=== PATIENT | female | born 1935 | race Caucasian/White ===

== ENCOUNTER → 2016-11-11 | Outpatient (REF) | payer MEDICARE, OTHER ==
[~2016-11-11] MED LIST: ATOR1TAB19 PO; BISO5TAB5 PO; CHLO25TA PO; ELIQ5TAB PO; FISH5CAP PO; FLEC150T PO; FLON1SPR; LEVO125T3 PO; LOSA25TA8 PO; MAGN500T6 PO; METF1000 PO; TIMO5OPD OU; TYLE325T5 PO; VITMTA PO
== END ==
LOC: M LAB REF 16:26
PROVIDERS: ATTEND Family Medicine
DX: I48.91 Unspecified atrial fibrillation (principal); E11.9 Type 2 diabetes mellitus without complications; R63.4 Abnormal weight loss; E03.9 Hypothyroidism, unspecified; I10 Essential (primary) hypertension; Z86.79 Personal history of other diseases of the circulatory system

== ENCOUNTER → 2016-11-22 | Outpatient (CLI) | payer MEDICARE, OTHER ==
[~2016-11-22] MED LIST changes: +GASTROGRAFIN SOLUTION 30ML (Q9963) As Ordered ONE; +ISOVUE-370 76% 100ML VIAL (Q9967) As Ordered ONE
--- NOTE | 2016-11-22 16:28 | REP ---
CT study abdomen and pelvis without and with IV contrast: With oral contrast. History: Loss of appetite, unexplained weight loss, extreme exhaustion. CT contrast dose: 100 ml of Isovue [address] findings: Preliminary digital career development director radiograph demonstrates unremarkable bowel gas pattern. A bipolar pacemaker is seen in the right heart. The lung bases are clear on axial CT images. The liver and the spleen are normal in size and homogeneous in texture. There is mild diffuse fatty infiltration of the liver. There are opaque small gallstones layering in the dependent portion of the gallbladder. Pancreas is unremarkable. There are two accessory splenules. The kidneys enhance symmetrically. There is a cyst in the upper pole of the left kidney, which measures 2.5 cm in diameter. No renal calculus is seen. No mass lesion is observed. There is a fat-containing small nodule in the medial and superior aspect of the left adrenal gland consistent with a benign myelolipoma. This measures 2.7 cm x 2.2 cm x 2.6 cm. It is unchanged from the prior study of January 13, 2007. The right adrenal gland is unremarkable. There are a few normal-appearing celiac axis lymph nodes. No evidence of adenopathy seen. Small and large intestinal bowel loops are normal in the upper abdomen. Pelvic findings: There is mild left colonic diverticulosis without CT evidence of diverticulitis. No obstructive lesion or mass is seen. Uterus is surgically absent. Urinary bladder is unremarkable. No abdominal wall defect is seen. Bone window settings show no bony destructive lesion. There are degenerative changes in the lumbar spine. Impression: 1. Mild diffuse fatty infiltration of the liver. 2. Cholelithiasis. 3. Stable benign left adrenal gland myelolipoma. 4. Benign left renal cysts. 5. Mild left colonic diverticulosis. No acute abdominal or pelvic abnormality. Signed by Khoa Rojas MD 11/22/2016 05:02 P
== END ==
LOC: M RAD 13:51
PROVIDERS: ATTEND Family Medicine
DX: K76.0 Fatty (change of) liver, not elsewhere classified (principal); K80.20 Calculus of gallbladder without cholecystitis without obstruction; N28.1 Cyst of kidney, acquired; K57.90 Diverticulosis of intestine, part unspecified, without perforation or abscess without bleeding; R63.4 Abnormal weight loss; R63.0 Anorexia; R53.83 Other fatigue
CPT/HCPCS: 74178; Q9963; Q9967

== ENCOUNTER → 2017-01-31 | Outpatient (CLI) | payer MEDICARE, OTHER ==
[~2017-01-31] MED LIST changes: -GASTROGRAFIN SOLUTION 30ML (Q9963) As Ordered ONE; -ISOVUE-370 76% 100ML VIAL (Q9967) As Ordered ONE; -LEVO125T3 PO; +LEVO125T4 PO; -METF1000 PO; +METF10004 PO
--- NOTE | 2017-01-31 09:23 | REP ---
Abdominal right upper quadrant ultrasound: Study is correlated with the CT abdomen pelvis dated 11/22/2016. There is no Sutherland's sign to transducer pressure. There are multiple small mobile gallbladder calculi. These were also identified on the comparison CT. There is no gallbladder wall thickening or pericholecystic fluid. There is no intrahepatic or extrahepatic biliary duct dilatation, the common duct measures 4.7 mm in diameter. The hepatic parenchyma is a hyperechoic compatible with hepato steatosis. This is was also identified on the comparison CT. There are no hepatic masses. The visualized portion of the pancreatic head is unremarkable. The body and tail are obscured by bowel. There is no right renal calculus, mass, cyst or hydronephrosis. The right kidney is normal size measuring 11.7 cm craniocaudad length. There is a column of Clint as an anatomic variant. Impression: Cholelithiasis. There is no ultrasound evidence of acute cholecystitis. Hepato steatosis. No biliary duct dilatation. Signed by Wei Allan MD 01/31/2017 09:13 A
--- NOTE | 2017-01-31 13:37 | REP ---
Hepatobiliary scan and gallbladder ejection fraction: History: Cholelithiasis. Unexplained weight loss. Technique: 6.3 mCi of technetium-99m mebrofenin was injected and sequential anterior images are acquired. 65 minutes after the mebrofenin injection, the patient consumed 8 ounces Ensure and an additional 60 minutes of imaging was acquired. Regions of interest are plotted around the gallbladder. Findings: The initial hepatocellular parenchymal uptake phase is normal and homogeneous. Intra- and extra-hepatic bile ducts and duodenum are labeled by the 10 -minute image. The gallbladder is first labeled on the 20 -minute image. There is normal washout from the liver parenchyma into the gallbladder and small intestine on subsequent images. The gallbladder ejection fraction is 32 %. Values greater than 35 % are considered normal with this technique. Impression: Normal hepatobiliary scan and slightly decreased gallbladder ejection fraction. Signed by Khoa Rojas MD 01/31/2017 01:29 P
== END ==
LOC: M RAD 08:17
PROVIDERS: ATTEND Family Medicine
DX: R10.9 Unspecified abdominal pain (principal)
CPT/HCPCS: 76705; 78227; A9537; J2805

== ENCOUNTER → 2017-04-14 | Outpatient (REF) | payer MEDICARE, OTHER ==
[2017-04-14 19:11] LABS: ANION GAP 8 MEQ/L (8-16); BLOOD UREA NITROGEN 24 MG/DL (7-18); CARBON DIOXIDE LEVEL 31 MEQ/L (21-32); CHLORIDE LEVEL 102 MEQ/L (98-107); CREATININE FOR GFR 0.77 MG/DL (0.55-1.02); GLOMERULAR FILTRATION RATE > 60.0 (>32); GLUCOSE, FASTING 172 MG/DL (83-110); MAGNESIUM LEVEL 1.8 MG/DL (1.8-2.4); POTASSIUM SERUM 3.9 MEQ/L (3.5-5.1); SODIUM LEVEL 141 MEQ/L (136-145)
== END ==
LOC: M LAB REF 18:20
PROVIDERS: ATTEND Family Medicine
DX: I49.1 Atrial premature depolarization (principal); E11.9 Type 2 diabetes mellitus without complications; Z86.79 Personal history of other diseases of the circulatory system; I45.89 Other specified conduction disorders

== ENCOUNTER 2021-05-15 14:03 | Inpatient (IN) | payer MEDICARE, OTHER ==
[~2021-05-15] VITALS: Ht 165.1 cm; Wt 58.4 kg
[~2021-05-15 14:03] MED LIST changes: +BISO5TAB14 PO; -BISO5TAB5 PO; +LOSA25TA14 PO; -LOSA25TA8 PO
[2021-05-15] MEDS ORDERED: PANTOPRAZOLE 40MG VIAL (C9113 PER 1) IV ONE (15:20)
--- NOTE | 2021-05-15 15:47 | REP ---
INDICATION: syncope COMPARISON: 01/31/2016 TECHNIQUE: Portable AP view of the chest FINDINGS: The mediastinum and cardiac silhouette are stable and within normal limits for portable technique. Pacemaker in stable position. The lung weathers demonstrate chronic changes without consolidation, effusion, or pneumothorax. Skeletal structures are intact. IMPRESSION: No acute cardiopulmonary process appreciated. <Electronically signed by Kg Pastrana > 05/15/21 [id number]
[2021-05-15 16:23] LABS: BASO # 0.1 10^3/uL (0.0-0.2); BASO % 0.6 % (0.0-1.0); EOS # 0.1 10^3/uL (0.0-0.5); EOS % 0.6 % (0.0-3.0); HEMATOCRIT 35.4 % (36.0-47.0); HEMOGLOBIN 11.9 g/dl (12.0-15.5); LYMPH # 2.6 10^3/uL (1.5-5.0); LYMPH % 20.8 % (24.0-44.0); MEAN CORPUSCULAR HEMOGLOBIN 30.1 pg (27.0-33.0); MEAN CORPUSCULAR HGB CONC 33.6 g/dl (32.0-36.5); MEAN CORPUSCULAR VOLUME 89.4 fl (80.0-96.0); MONO # 0.7 10^3/uL (0.0-0.8); MONO % 5.4 % (2.0-8.0); NEUTROPHILS # 8.8 10^3/uL (1.5-8.5); PLATELET COUNT, AUTOMATED 188 10^3/uL (150-450); RED BLOOD COUNT 3.96 10^6/uL (4.00-5.40); WHITE BLOOD COUNT 12.3 10^3/uL (4.0-10.0)
[2021-05-15 16:34] LABS: INR 1.04
[2021-05-15] MEDS ORDERED: ASPI81CH33 PO (16:56)
[2021-05-15 17:21] LABS: ALBUMIN 3.3 GM/DL (3.2-5.2); ALT/SGPT 29 U/L (12-78); BILIRUBIN,DIRECT 0.1 MG/DL (0.0-0.2); BILIRUBIN,TOTAL 0.4 MG/DL (0.2-1.0); BLOOD UREA NITROGEN 41 MG/DL (7-18); CALCIUM LEVEL 9.6 MG/DL (8.8-10.2); CARBON DIOXIDE LEVEL 26 MEQ/L (21-32); CHLORIDE LEVEL 102 MEQ/L (98-107); CK-MB VALUE MASS < 1.0 NG/ML (<3.6); CPK CREATINE PHOSPHOKINASE 25 U/L (26-192); FREE T4 1.12 NG/DL (0.76-1.46); GLOMERULAR FILTRATION RATE > 60.0 (>32); GLUCOSE, FASTING 112 MG/DL (70-100); LIPASE 77 U/L (73-393); MAGNESIUM LEVEL 1.6 MG/DL (1.8-2.4); POTASSIUM SERUM 3.7 MEQ/L (3.5-5.1); SODIUM LEVEL 139 MEQ/L (136-145); THYROID STIMULATING HORMONE 0.894 uIU/ML (0.358-3.740); TOTAL PROTEIN 6.3 GM/DL (6.4-8.2); TROPONIN I < 0.02 NG/ML (< 0.10)
[2021-05-15] MEDS ORDERED: ISOVUE-370 76% 100ML VIAL As Ordered ONE (17:46)
[2021-05-15] MEDS ORDERED: NS 500 ML IV ONE (18:45)
--- NOTE | 2021-05-15 19:14 | REPVR ---
PROCEDURE INFORMATION: Exam: CT Abdomen And Pelvis With Contrast Exam date and time: 05/15/2021 5:57 PM Age: 86 years old Clinical indication: Abdominal pain; Localized; Lower; Additional info: Low abd pain syncope TECHNIQUE: Imaging protocol: Computed tomography of the abdomen and pelvis with contrast. Radiation optimization: All CT scans at this facility use at least one of these dose optimization techniques: automated exposure control; mA and/or kV adjustment per patient size (includes targeted exams where dose is matched to clinical indication); or iterative reconstruction. Contrast material: ISOVUE 370; Contrast volume: 100 ml; Contrast route: INTRAVENOUS (IV); COMPARISON: CT ABD PELVIS W/O FOL BY WIT 11/22/2016 3:16 PM FINDINGS: Lungs: No suspicious mass or airspace process in the visualized lung bases. Liver: Heterogeneous patchy enhancement of the liver with appearance suggesting hepatic steatosis and areas of geographic sparing. Relatively similar appearance compared to the prior CT from November 2016. Gallbladder and bile ducts: Gallstones are present in the gallbladder lumen. No adjacent fluid or duct dilatation. Pancreas: Pancreas appears normal. No focal mass or peripancreatic inflammation. Spleen: Spleen appears homogeneous without focal mass. Adrenal glands: Right adrenal gland is normal. Left adrenal demonstrates a 2.8 x 1.9 cm mass that is unchanged since 2017. Kidneys and ureters: Kidneys are normal except for benign simple fluid density cysts which require no follow-up. Stomach and bowel: No evidence of small bowel obstruction. Multiple fluid-filled loops of nondilated bowel with enhancing mucosa are present. Diverticular changes are present within the colon without inflammation. Appendix: Appendix is not seen. No RLQ inflammation to suggest appendicitis. Intraperitoneal space: No pneumoperitoneum. Vasculature: No aortic aneurysm. Main portal and splenic veins enhance normally. Lymph nodes: No enlarged lymph nodes. Urinary bladder: Urinary bladder appears normal. Reproductive: Uterus is surgically absent. Bones/joints: Bony structures are normal except for lumbar spine degenerative disc changes. Soft tissues: Unremarkable. IMPRESSION: 1. Pattern of small bowel and colon suggests the possibility of mild inflammatory or infectious enteritis without obstruction. 2. Colonic diverticulosis without active inflammation 3. Prominent rectosigmoid colonic stool without evidence of an obstructive lesion. Correlation with rectal exam is recommended if clinically warranted Electronically signed by: Oleksandr Guo On 05/15/2021 19:14:04 PM
[2021-05-15] MEDS ORDERED: SODIUM CHLORIDE 0.9% 1000ML IV STA (20:03)
--- NOTE | 2021-05-15 20:27 | HPEPDOC ---
[facility] Medical History & Physical Date of Admission May 15, 2021 Date of Service: May 15, 2021 Primary Care Physician: Susie Blackwell Attending Physician: KERRI JEROME MD History and Physical TIME OF SERVICE: 950pm CHIEF COMPLAINT: loss of consciousness HISTORY OF PRESENT ILLNESS: For the last 6 months has been feeling more tired than usual and sleeping a lot. For several weeks she has had intermittent right sided 6/10 in severity abdominal pain that improves after she has a BM. This afternoon, while walking felt lightheaded and passed out. Because her caught her she didnt hurt herself. Of note she had two black BMs today and has been taking Ibuprofen daily for joint pain. REVIEW OF SYSTEMS: 10-point review of systems negative except as listed in HPI PAST MEDICAL/ SURGICAL HISTORY: IDDM, Paroxysmal A Fib, Sick sinus syndrome w pacemaker placement, DLP, Hepatic steatosis, diverticulosis, hypothyroidism, OA of the knees, Bilateral cataract surgery, Tonsillectomy, Appendectomy, Hysterectomy, Resection of facial skin cancer, Lysis of adhesions FAMILY HISTORY: Her father had CAD SOCIAL HISTORY: She is a former smoker, drinks alcohol occasionally and lives with her ; she is a retired commercial real estate sales manager ALLERGIES: Please see below. HOME MEDICATIONS: Please see below. PHYSICAL EXAMINATION: Vital Signs Date Time Temp Pulse Resp B/P (MAP) Pulse Ox O2 Delivery O2 Flow Rate FiO2 05/15/21 14:50 117/66 (83) 05/15/21 14:50 98.7 71 18 95 Room Air GENERAL APPEARANCE: slim build / well developed/ NAD HEENT: EOMI / MM pink but dry CARDIOVASCULAR: RRR/NMRG LUNGS: CTAB on RA ABDOMEN: contour flat / soft & she feels more pressure with palpation of the right lower quadrant MUSCULOSKELETAL: NCAT / ROWENA x 4 extremities INTEGUMENT: she is not flushed, pale or diaphoretic NEUROLOGICAL: CN 2-12 grossly intact / speech not dysarthric PSYCHIATRIC: A&O x 3 / able to understand and follow all commands LABORATORY DATA: IMAGING: CT abd/pelvis IMPRESSION: 1. Pattern of small bowel and colon suggests the possibility of mild inflammatory or infectious enteritis without obstruction. 2. Colonic diverticulosis without active inflammation 3. Prominent rectosigmoid colonic stool without evidence of an obstructive lesion. Correlation with rectal exam is recommended if clinically warranted. Chest xray IMPRESSION: No acute cardiopulmonary process appreciated. MICROBIOLOGY: Respiratory panel negative ASSESSMENT: is an 86 yr old w a hx of IDDM, Paroxysmal A Fib, Sick sinus syndrome w pacemaker placement, DLP, Hepatic steatosis, hypothyroidism, diverticulosis & OA of the knees admitted for syncope, melena, and SIRS. PLAN: 1 Syncope -Cause may be vasovagal or orthostatic or cardiogenic in nature, -I am not convinced that this is due to symptomatic anemia alone bc her Hg is 11. -She also has a pacemaker. Per JAMAs article Did this patient have cardiac syn cope? she has a hx of atrial fibrillation which is associated with a positive likelihood of cardiac syncope -Her EGSYS Score to identify cardiac syncope is 3 which indicates that this is likely cardiac syncope. Plan: admit to PCU / Telemetry / f/u orthostats / the day time team may consider reaching out to to determine if her pacer needs to be interrogated in the morning / check dig levels (med can cause dizziness) 2 Melena / UGIB -Suspect this is due to Ibuprofen use (erosive gastritis) -Per JAMAs article Does this patient have a severe UGIB? the presence of a BUN:Cr ratio > 30 and her reports of melena increases the likelihood that she has a severe UGIB -Her Keesha-Blatchford Score to identify low risk UGIB is 8 points which puts her in the category of high risk for GI bleed Plan: because her Keesha-Blachford score is high we will admit her to PCU/ ask RNs to place 2 large bore IVs & check orthostats / start PPI 40mg IV BID for 72 H, then switch to PO after 72 H (to decrease rate of re-bleeding) / f/u type & screen & iron studies / f/u Hg Q6H and keep Hg >7 / hold Ibuprofen & ASA / avoid PRN NSAIDs / CLD for now / GI consult for EGD +/-c-scope in the morning 3 SIRS vs Sepsis -possibly 2/2 Enteritis, but we need to also r/o other sources of infection -She has the following SIRS criteria: HR >90 / WBC >12 Plan: admit to ICU / telemetry / f/u lactic acid / Zosyn and vancomycin pending MRSA / LR /f/u blood cx, UA w culture and GI panel / Acetaminophen PRN for fever / target MAP at of least 65 to 70 / f/u Is and Os with target UOP of at least 0.5 ml/kg/H / f/u FSBS w target serum glucose 140-180 while acutely ill / hold chlorthalidone 4 Fatigue Plan: f/u B12 and B1 5 Hypomagnesemia Plan: replete Mg 6 IDDM Plan: f/u accuchecks Q6H / hypoglycemia protocol / sliding scale insulin / hold oral anti-glycemics / f/u A1C / decrease her long acting insulin from 14 units QHS to 5 units QHS / PCP may consider out pt Endo referral to switch the patient from basal bolus injection to continuous subcutaneous insulin infusion which has been shown to produced small improvements in A1C, improve QOL and reduce episodes of severe hypoglycemia 7 Paroxysmal A Fib / Sick sinus syndrome w pacemaker placement -Her CHADSVASC Score is 4, but for unclear reasons she is not on [facility] AC Plan: telemetry / digoxin & sotalol / check dig levels / once the cause of her GI bleed has been determined the day time team may consider, obtaining a copy of her Echo to confirm that she doesn't have valvular Afib, calculating her her HASBLED score, and discussing the risks and benefits of AC with the patient prior to starting a DOAC 8 Hypothyroidism Plan: levothyroxine DVT px w TEDS/SCDs bc of GIB Disposition: home after more than 2 midnights stay Home Medications Scheduled Aspirin (Aspirin EC) 81 Mg Tablet., 81 MG PO DAILY Atorvastatin Calcium (Atorvastatin Calcium) 10 Mg Tab, 10 MG PO Q2D EVERY OTHER NIGHT Digoxin (Digoxin) 125 Mcg Tablet, 125 MCG PO DAILY Docusate Sodium (Colace) 100 Mg Capsule, 1 CAP PO BID Ferrous Sulfate (Ferrous Sulfate) 325 Mg Tablet., 1 TAB PO DAILY Insulin Glargine,Hum.rec.anlog (Chitra Grover) 300 Unit/1 Ml Insuln.pen, 14 UNIT SC QHS Levothyroxine Sodium (Levothyroxine Sodium) 125 Mcg Tab, 125 MCG PO DAILY Magnesium Gluconate (Magnesium Gluconate) 500 Mg Tab, 500 MG PO DAILY Metformin HCl (Metformin HCl) 1,000 Mg Tab, 1,000 MG PO BIDWM Multivitamins (Thera M Plus Tablet) 1 Tab Tab, 1 TAB PO DAILY Pantoprazole Sodium (Pantoprazole Sodium) 40 Mg Tablet.dr, 40 MG PO BID Sotalol HCl (Sotalol) 80 Mg Tablet, 80 MG PO BID Scheduled PRN Fluticasone Propionate (Flonase Allergy Relief) 50 Mcg/Act Spr, 1 SPRAY NA BID PRN for NASAL CONGESTION Allergies Coded Allergies: amiodarone (Unverified Allergy, Unknown, BLISTERS, 05/15/21) A-FIB/CHADSVASC A-FIB History Current/History of A-Fib/PAF?: Yes Current PO Anticoag Therapy: No Treatment Treatment ordered: NONE (gi bleed) Other anticoagulant ordered: GI bleed w anemia Reason Anticoagulant not given: Current bleeding Other reason anticoagulant not: anemia KERRI JEROME MD May 15, 2021 20:27
[2021-05-15] MEDS ORDERED: VANCOMYCIN HCL 1,000 MG, VIAL MATE ADAPTER 1 EACH in NS 250 ML IV SCH (20:35)
[2021-05-15] MEDS ORDERED: MAG SULF 1GM/100ML (MAG RUN) 1 GM in IV 1 EA IV ONE (21:00)
[2021-05-15 21:04] LABS: RSV AMPLIFICATION NEGATIVE (NEGATIVE)
--- NOTE | 2021-05-15 21:59 | ECGEPIP ---
[facility] - ED Test Date: 2021-05-15 Pat Name: APOLINAR MENDEZ Department: Room: - Gender: Female Circulation Tender: THIERRYVINICIO : 1935 Requested By: SHELLY Barker Order Number: [id number] Reading MD: John Hummel Measurements Intervals [place] Rate: 72 P: [place]: 260 QRS: -11 QRSD: 80 T: -57 QT: 390 QTc: 427 Interpretive Statements Atrial-paced rhythm with prolonged AV conduction Low voltage QRS throughout Similar to tracing done 02-01-[address] and T wave abnormality Electronically Signed on 05-15-2021 21:59:19 EDT by John Hummel
[2021-05-15] MEDS ORDERED: HOME MED LIST COMPLETE! XX SCH (22:25)
[2021-05-15] MEDS ORDERED: DIGO0.123 PO (22:25)
[2021-05-15] MEDS ORDERED: ASPI-161 PO (22:25)
[2021-05-15] MEDS ORDERED: SOTA80TA53 PO (22:25)
[2021-05-15] MEDS ORDERED: CHLO25TA PO (22:25)
[2021-05-15] MEDS ORDERED: TOUJ1.2I SC (22:25)
[2021-05-15] MEDS: PIPERACILLIN/TAZOBACTAM SOD 3.375 GM in D5W MINI-BAG PLUS 50 ML IV SCH (22:58)
[2021-05-16] VITALS (8 sets, daily range): BP systolic 92–113; BP diastolic 50–61
[2021-05-16] MEDS ORDERED: VANCOMYCIN HCL 1,000 MG, VIAL MATE ADAPTER 1 EACH in NS 250 ML IV ONE ×3
[2021-05-16] MEDS ORDERED: FLUTICASONE PROP 0.05% NASAL SPRAY 16 GM (FLONASE) PRN (01:45)
[2021-05-16] MEDS ORDERED: GLUCAGON INJ 1MG VIAL SC PRN (01:45)
[2021-05-16] MEDS ORDERED: GLUCOSE 4GM CHEW TABLET PO PRN (01:45)
[2021-05-16] MEDS ORDERED: DEXTROSE 50% 50 ML SYRINGE IV PRN (01:45)
[2021-05-16 02:23] LABS: HEMATOCRIT 29.4 % (36.0-47.0)
[2021-05-16] MEDS ORDERED: ACETAMINOPHEN 650MG ER TAB (TYLENOL ARTHRITIS) PO PRN (02:25)
[2021-05-16 02:29] LABS: HEMOGLOBIN 9.9 g/dl (12.0-15.5)
[2021-05-16 02:34] LABS: INR 1.12; PROTHROMBIN TIME 14.8 SECONDS (12.7-14.5)
[2021-05-16 02:35] LABS: PARTIAL THROMBOPLASTIN TIME 26.7 SECONDS (25.9-37.0)
[2021-05-16 02:48] LABS: FERRITIN 66 NG/ML (8-252); IRON (FE) 76 UG/DL (50-170); PERCENT SATURATION 31.9 % (13.2-45.0); TOTAL IRON BINDING CAPACITY 238 UG/DL (250-450)
[2021-05-16] MEDS: SOTALOL HCL 80 MG TAB PO SCH ×3 (03:16→22:05)
[2021-05-16] MEDS: PIPERACILLIN/TAZOBACTAM SOD 3.375 GM in D5W MINI-BAG PLUS 50 ML IV SCH ×4 (03:32→22:06)
[2021-05-16] MEDS: LR 1,000 ML IV SCH ×3 (04:29→23:26)
[2021-05-16 04:35] LABS: APPEARANCE, URINE CLEAR (CLEAR); BACTERIA, URINE AUTO NEGATIVE (NEGATIVE); BILIRUBIN, URINE AUTO NEGATIVE (NEGATIVE); BLOOD, URINE BLOOD NEGATIVE (NEGATIVE); COLOR, URINE STRAW (YELLOW); GLUCOSE, URINE (UA) AUTO NEGATIVE (NEGATIVE); KETONE, URINE AUTO NEGATIVE (NEGATIVE); LEUKOCYTE ESTERASE, URINE AUTO NEGATIVE (NEGATIVE); NITRITE, URINE AUTO NEGATIVE (NEGATIVE); PROTEIN, URINE AUTO NEGATIVE (NEGATIVE); RBC, URINE AUTO 1 /HPF (0-3); SPECIFIC GRAVITY URINE AUTO 1.018 (1.002-1.035); SQUAMOUS EPITHELIAL CELL UR AU 0 /HPF (0-6); UROBILINOGEN, URINE AUTO 0.2 mg/dL (0.0-2.0); WBC, URINE AUTO 2 /HPF (0-3)
[2021-05-16] MEDS ORDERED: HumaLOG INSULIN (NovoLOG) PER UNIT SC SCH (06:00)
[2021-05-16] MEDS ORDERED: NS 500 ML IV ONE (06:05)
[2021-05-16 06:06] LABS: HEMATOCRIT 29.4 % (36.0-47.0); HEMOGLOBIN 9.9 g/dl (12.0-15.5); MEAN CORPUSCULAR HEMOGLOBIN 30.5 pg (27.0-33.0); MEAN CORPUSCULAR HGB CONC 33.7 g/dl (32.0-36.5); MEAN CORPUSCULAR VOLUME 90.5 fl (80.0-96.0); PLATELET COUNT, AUTOMATED 148 10^3/uL (150-450); RED BLOOD COUNT 3.25 10^6/uL (4.00-5.40); WHITE BLOOD COUNT 6.9 10^3/uL (4.0-10.0)
[2021-05-16 06:15] LABS: HEMOGLOBIN A1c 6.6 %
[2021-05-16] MEDS: PANTOPRAZOLE 40MG VIAL (C9113 PER 1) IV SCH ×2 (06:21→17:50)
[2021-05-16] MEDS: LEVOTHYROXINE 125MCG TABLET (0.125MG) PO SCH (06:22)
[2021-05-16 06:26] LABS: BLOOD UREA NITROGEN 34 MG/DL (7-18); CALCIUM LEVEL 8.2 MG/DL (8.8-10.2); CARBON DIOXIDE LEVEL 28 MEQ/L (21-32); CHLORIDE LEVEL 107 MEQ/L (98-107); CREATININE FOR GFR 0.79 MG/DL (0.55-1.30); GLOMERULAR FILTRATION RATE > 60.0 (>32); GLUCOSE, FASTING 110 MG/DL (70-100); MAGNESIUM LEVEL 1.8 MG/DL (1.8-2.4); POTASSIUM SERUM 3.7 MEQ/L (3.5-5.1); SODIUM LEVEL 143 MEQ/L (136-145)
[2021-05-16] MEDS ORDERED: HOME MED LIST COMPLETE! XX SCH (09:10)
[2021-05-16 09:46] LABS: FOLATE > 24.0 NG/ML (>5.4); VITAMIN B12 LEVEL 196 PG/ML (247-911)
[2021-05-16] MEDS: MAGNESIUM GLUCONATE 500 MG TAB PO SCH (10:05)
[2021-05-16] MEDS: DIGOXIN 0.125 MG TAB PO SCH (10:07)
[2021-05-16] MEDS: HumaLOG INSULIN (NovoLOG) PER UNIT SC SCH ×3 (12:00→21:00)
--- NOTE | 2021-05-16 14:35 | IPNPDOC ---
Text Note Date of Service The patient was seen on 05/16/21. NOTE SUBJECTIVE: -No acute complaints this AM -BPs soft otherwise doing well GENERAL APPEARANCE: well-nourished and developed/ NAD HEENT: EOMI / MMM&P / she has an IJ at the left neck CARDIOVASCULAR: RRR/NMRG LUNGS: CTAB on RA ABDOMEN: contour flat INTEGUMENT: + tattoo MUSCULOSKELETAL: NCAT / ROWENA x 4 extremities NEUROLOGICAL: CN 2-12 grossly intact / speech not dysarthric PSYCHIATRIC: A&O x 3 / able to understand and follow all commands TELE: Paced with normal rate LABORATORY DATA: Reviewed hgb 9.9 after hydration WBC 6.9 platelets 148 na 143 K 3.7 Cr 0.79 Fe 76 ferritin 66 mag 1.8 digoxin level 1 IMAGING: CT A/P: Lungs: No suspicious mass or airspace process in the visualized lung bases. Liver: Heterogeneous patchy enhancement of the liver with appearance suggesting hepatic steatosis and areas of geographic sparing. Relatively similar appearance compared to the prior CT from November 2016. Gallbladder and bile ducts: Gallstones are present in the gallbladder lumen. No adjacent fluid or duct dilatation. Pancreas: Pancreas appears normal. No focal mass or peripancreatic inflammation. Spleen: Spleen appears homogeneous without focal mass. Adrenal glands: Right adrenal gland is normal. Left adrenal demonstrates a 2.8 x 1.9 cm mass that is unchanged since 2017. Kidneys and ureters: Kidneys are normal except for benign simple fluid density cysts which require no follow-up. Stomach and bowel: No evidence of small bowel obstruction. Multiple fluid-filled loops of nondilated bowel with enhancing mucosa are present. Diverticular changes are present within the colon without inflammation. Appendix: Appendix is not seen. No RLQ inflammation to suggest appendicitis. Intraperitoneal space: No pneumoperitoneum. Vasculature: No aortic aneurysm. Main portal and splenic veins enhance normally. Lymph nodes: No enlarged lymph nodes. Urinary bladder: Urinary bladder appears normal. Reproductive: Uterus is surgically absent. Bones/joints: Bony structures are normal except for lumbar spine degenerative disc changes. Soft tissues: Unremarkable. IMPRESSION: 1. Pattern of small bowel and colon suggests the possibility of mild inflammatory or infectious enteritis without obstruction. 2. Colonic diverticulosis without active inflammation 3. Prominent rectosigmoid colonic stool without evidence of an obstructive lesion. Correlation with rectal exam is recommended if clinically warranted CXR: The mediastinum and cardiac silhouette are stable and within normal limits for portable technique. Pacemaker in stable position. The lung weathers demonstrate chronic changes without consolidation, effusion, or pneumothorax. Skeletal structures are intact. IMPRESSION: No acute cardiopulmonary process appreciated. ASSESSMENT: 86 yr old w a hx of IDDM, Paroxysmal A Fib, Sick sinus syndrome w pacemaker placement, DLP, Hepatic steatosis, hypothyroidism, diverticulosis & OA of the knees admitted for syncope, melena, and SIRS. PLAN: Syncope: possibly cardiac vs. unlikely symptomatic anemia vs. hypovolemia w/ recent melena -Called Dr. Arthur, seeking consult to interrogate her PPM. She tells me that it was actually interrogated on friday and it was functioning well -Telemetry thus far without noted pathologic dysrhythmia activity or blocks -Hypomag corrected, daily check with goal ~2 -s/p aggressive fluids, currently on 125cc/hr Melena / UGIB -Suspect 2/2 recent NSAID use -continue PPI 40mg IV BID -type & screen -is iron deficient with ferritin stores of <100. Will start on PO iron once diet is restored -continue Q6H and keep Hg >8 -stopped Ibuprofen -holding ASA -CLD for now / GI consulted for EGD, NPO at midnight, with plan for EGD tomorrow -FOBT SIRS vs unlikely sepsis -possibly 2/2 Enteritis, but we need to also r/o other sources of infection, thus far UA bland, CXR without pathology -will for now, continue empiric pip/tazo given noted enteritis -DC vancomycin -MRSA negative -blood cx negative -f/u GI panel -Acetaminophen PRN for fever -hold chlorthalidone Hypomagnesemia -repleted, goal ~2 Anemia: with noted at least UGIB with melena reports -SAM per labs -f/u B12 and folate -to start PO iron when she resumes PO -GI was consulted by night team, pending EGD tomorrow AM -PPI BID IV -CLD for now -Q6H H/H IDDM -hypoglycemia protocol 0sliding scale insulin -hold oral anti-glycemics -long acting insulin at 5 units QHS History of paroxysmal A Fib / Sick sinus syndrome w pacemaker placement -Her CHADSVASC Score is 4, but for unclear reasons she is not on jail AC, and meanwhile she is potentially GIB -telemetry -continue digoxin and sotalol -dig level was therapeutic at 1 Hypothyroidism -levothyroxine DVT px w TEDS/SCDs Disposition: home after more than 2 midnights stay VS,Fishbone, I+O VS, Fishbone, I+O Laboratory Tests 05/15/21 16:00 05/15/21 16:01 05/16/21 02:09 05/16/21 05:23 Vital Signs Date Time Temp Pulse Resp B/P (MAP) Pulse Ox O2 Delivery O2 Flow Rate FiO2 05/16/21 10:07 76 05/16/21 09:00 94/50 05/16/21 08:21 99.1 16 95 Room Air I&O- Last 24 Hours up to 6 AM 05/16/21 06:00 Intake Total 1105 ml Output Total 1000 ml Balance 105 ml HIWOT HOLLEY MD May 16, 2021 11:19
[2021-05-16] MEDS ORDERED: VANCOMYCIN HCL 1,000 MG, VIAL MATE ADAPTER 1 EACH in NS 250 ML IV SCH (18:00)
[2021-05-16] MEDS: LEVEMIR (INSULIN DETEMIR) 1 UNITS/0.01ML SC SCH (21:00)
[2021-05-16] MEDS ORDERED: ATORVASTATIN 10 MG TAB PO SCH (21:00)
[2021-05-17] VITALS: BP 90/52
[2021-05-17] MEDS: PIPERACILLIN/TAZOBACTAM SOD 3.375 GM in D5W MINI-BAG PLUS 50 ML IV SCH ×4 (03:21→21:31)
[2021-05-17 05:15] VITALS: BP 93/52
[2021-05-17] MEDS: PANTOPRAZOLE 40MG VIAL (C9113 PER 1) IV SCH ×2 (06:25→19:08)
[2021-05-17] MEDS: LEVOTHYROXINE 125MCG TABLET (0.125MG) PO SCH (06:25)
[2021-05-17] MEDS: HumaLOG INSULIN (NovoLOG) PER UNIT SC SCH ×4 (07:30→21:30)
[2021-05-17 08:00] VITALS: BP 95/54
[2021-05-17] MEDS: LR 1,000 ML IV SCH (08:53)
[2021-05-17] MEDS: MAGNESIUM GLUCONATE 500 MG TAB PO SCH (08:55)
[2021-05-17] MEDS: DIGOXIN 0.125 MG TAB PO SCH (08:57)
[2021-05-17] MEDS: SOTALOL HCL 80 MG TAB PO SCH ×2 (09:00→21:29)
[2021-05-17] MEDS ORDERED: FLUBLOK(EGG FREE)(QUAD)INFLUENZA VACC 0.5ML SYRINGE 18YRS & OLDER IM ONE (09:00)
[2021-05-17 12:54] VITALS: BP 101/51
--- NOTE | 2021-05-17 14:00 | IPNPDOC ---
Text Note Date of Service The patient was seen on 05/17/21. NOTE SUBJECTIVE: -No acute complaints this AM OBJECTIVE: Vitals: see below GENERAL APPEARANCE: well-nourished and developed/ NAD HEENT: EOMI / MMM&P / she has an IJ at the left neck CARDIOVASCULAR: RRR/NMRG LUNGS: CTAB on RA ABDOMEN: contour flat INTEGUMENT: + tattoo MUSCULOSKELETAL: NCAT / ROWENA x 4 extremities NEUROLOGICAL: CN 2-12 grossly intact / speech not dysarthric PSYCHIATRIC: A&O x 3 / able to understand and follow all commands TELE: Paced with normal rate LABORATORY DATA: Reviewed IMAGING: CT A/P: Lungs: No suspicious mass or airspace process in the visualized lung bases. Liver: Heterogeneous patchy enhancement of the liver with appearance suggesting hepatic steatosis and areas of geographic sparing. Relatively similar appearance compared to the prior CT from November 2016. Gallbladder and bile ducts: Gallstones are present in the gallbladder lumen. No adjacent fluid or duct dilatation. Pancreas: Pancreas appears normal. No focal mass or peripancreatic inflammation. Spleen: Spleen appears homogeneous without focal mass. Adrenal glands: Right adrenal gland is normal. Left adrenal demonstrates a 2.8 x 1.9 cm mass that is unchanged since 2017. Kidneys and ureters: Kidneys are normal except for benign simple fluid density cysts which require no follow-up. Stomach and bowel: No evidence of small bowel obstruction. Multiple fluid-filled loops of nondilated bowel with enhancing mucosa are present. Diverticular changes are present within the colon without inflammation. Appendix: Appendix is not seen. No RLQ inflammation to suggest appendicitis. Intraperitoneal space: No pneumoperitoneum. Vasculature: No aortic aneurysm. Main portal and splenic veins enhance normally. Lymph nodes: No enlarged lymph nodes. Urinary bladder: Urinary bladder appears normal. Reproductive: Uterus is surgically absent. Bones/joints: Bony structures are normal except for lumbar spine degenerative disc changes. Soft tissues: Unremarkable. IMPRESSION: 1. Pattern of small bowel and colon suggests the possibility of mild inflammatory or infectious enteritis without obstruction. 2. Colonic diverticulosis without active inflammation 3. Prominent rectosigmoid colonic stool without evidence of an obstructive lesion. Correlation with rectal exam is recommended if clinically warranted CXR: The mediastinum and cardiac silhouette are stable and within normal limits for portable technique. Pacemaker in stable position. The lung weathers demonstrate chronic changes without consolidation, effusion, or pneumothorax. Skeletal structures are intact. IMPRESSION: No acute cardiopulmonary process appreciated. ASSESSMENT: 86 yr old w a hx of IDDM, Paroxysmal A Fib, Sick sinus syndrome w pacemaker placement, DLP, Hepatic steatosis, hypothyroidism, diverticulosis & OA of the knees admitted for syncope, melena, and SIRS. PLAN: Syncope: possibly cardiac vs. unlikely symptomatic anemia vs. hypovolemia w/ r ecent melena -Called Dr. Arthur, seeking consult to interrogate her PPM. She tells me that it was actually interrogated on Friday and it was functioning well -Telemetry thus far without noted pathologic dysrhythmia activity or blocks. Paced. -Hypomag corrected, daily check with goal ~2 -s/p aggressive fluids, currently on 125cc/hr Melena / UGIB with anemia -Suspect 2/2 recent NSAID use -continue PPI 40mg IV BID -type & screen -is iron deficient with ferritin stores of <100. Will start on PO iron once diet is restored -Daily CBC, with goal Hg >8 -stopped Ibuprofen -holding ASA -GI consulted pending EGD this morning SIRS vs unlikely sepsis -possibly 2/2 Enteritis, but we need to also r/o other sources of infection, thus far UA bland, CXR without pathology -will for now, continue empiric pip/tazo given noted enteritis,to dc post EGD -DC vancomycin -MRSA negative -blood cx negative -GI panel ordered, no BM since admission yet -Acetaminophen PRN for fever -holding chlorthalidone Hypomagnesemia -repleted, goal ~2 Anemia: with noted at least UGIB with melena reports -SAM per labs -f/u B12 and folate -to start PO iron when she resumes PO -PPI BID IV -NPO for EGD today -Daily CBC IDDM -hypoglycemia protocol -sliding scale insulin -hold oral anti-glycemics -long acting insulin at 5 units QHS History of paroxysmal A Fib / Sick sinus syndrome w pacemaker placement -Her CHADSVASC Score is 4, but for unclear reasons she is not on senior care AC, and meanwhile she is potentially GIB -telemetry -continue digoxin and sotalol -dig level was therapeutic at 1 Hypothyroidism -levothyroxine DVT px w TEDS/SCDs Disposition: home after more than 2 midnights stay VS,Fishbone, I+O VS, Fishbone, I+O Vital Signs Date Time Temp Pulse Resp B/P (MAP) Pulse Ox O2 Delivery O2 Flow Rate FiO2 05/17/21 09:00 71 95/54 05/17/21 05:15 98.0 18 97 Room Air I&O- Last 24 Hours up to 6 AM 05/17/21 06:00 Intake Total 1580 ml Output Total 1400 ml Balance 180 ml HIWOT HOLLEY MD May 17, 2021 10:23
[2021-05-17] MEDS ORDERED: SIMETHICONE 40MG/0.6ML DROPS 30ML As Ordered ONE (14:39)
[2021-05-17] MEDS ORDERED: propofoL 200 MG/20 ML VIAL As Ordered ONE (15:03)
[2021-05-17] MEDS ORDERED: LIDOCAINE 2% 100MG/5ML SDV (FOR ANES.) As Ordered ONE (15:03)
[2021-05-17] MEDS ORDERED: fentaNYL 100 MCG/2 ML INJECTION (J3010) As Ordered ONE (15:03)
--- NOTE | 2021-05-17 15:34 | ROOR ---
Patient Name: Brittaney Morton Procedure Date: 05/17/2021 2:39 PM Date of : 1935 Age: 86 Room: [facility] Gender: Female Note Status: Finalized Procedure: Upper GI endoscopy Indications: Acute post hemorrhagic anemia Providers: Jair Mitchell MD Referring MD: 2. Inpatient 2. Inpatient, Susie Blackwell DO Requesting Provider: Medicines: Monitored Anesthesia Care Complications: No immediate complications. Procedure: Pre-Anesthesia Assessment: - Prior to the procedure, a History and Physical was performed, and patient medications and allergies were reviewed. The patient is competent. The risks and benefits of the procedure and the sedation options and risks were discussed with the patient. All questions were answered and informed consent was obtained. Patient identification and proposed procedure were verified by the physician, the nurse and the anesthesiologist in the procedure room. Mental Status Examination: alert and oriented. Airway Examination: normal oropharyngeal airway and neck mobility. Respiratory Examination: clear to auscultation. CV Examination: normal. Prophylactic Antibiotics: The patient does not require prophylactic antibiotics. Prior Anticoagulants: The patient has taken no previous anticoagulant or antiplatelet agents. ASA Grade Assessment: III - A patient with severe systemic disease. After reviewing the risks and benefits, the patient was deemed in satisfactory condition to undergo the procedure. The anesthesia plan was to use monitored anesthesia care (MAC). Immediately prior to administration of medications, the patient was re-assessed for adequacy to receive sedatives. The heart rate, respiratory rate, oxygen saturations, blood pressure, adequacy of pulmonary ventilation, and response to care were monitored throughout the procedure. The physical status of the patient was re-assessed after the procedure. The Endoscope was introduced through the mouth, and advanced to the second part of duodenum. The upper GI endoscopy was accomplished without difficulty. The patient tolerated the procedure well. Findings: The examined esophagus was normal. Scattered moderate inflammation characterized by erosions, friability and granularity was found in the gastric antrum. Biopsies were taken with a cold forceps for Helicobacter pylori testing. Verification of patient identification for the specimen was done by the physician and nurse using the patient's name, date and medical record number. Estimated blood loss was minimal. Patchy moderate inflammation characterized by erosions and shallow ulcerations was found in the duodenal bulb and in the second portion of the duodenum. Impression: - Normal esophagus. - Gastritis. Biopsied. - Duodenitis. Recommendation: - Patient has a contact number available for emergencies. The signs and symptoms of potential delayed complications were discussed with the patient. Return to normal activities tomorrow. Written discharge instructions were provided to the patient. - High fiber diet. - Continue present medications. - Use Protonix (pantoprazole) 40 mg PO twice daily - to be taken in morning (1/2 hour before breakfast) and at bedtime ( atleast 3 hours after last meal) for 6 weeks. - Await pathology results. - If Biopsy shows H. pylori will need therapy with antibiotic course.. - Telephone GI clinic for pathology results 1 - 2 weeks. Please call GI clinic @ [phone] - Return to primary care physician. - Return to GI clinic if persistent symptoms or new symptoms. Procedure Code(s): --- Professional --- 61538, Esophagogastroduodenoscopy, flexible, transoral; with biopsy, single or multiple Diagnosis Code(s): --- Professional --- K29.70, Gastritis, unspecified, without bleeding K29.80, Duodenitis without bleeding D62, Acute posthemorrhagic anemia CPT copyright 2019 [employer]. All rights reserved. The codes documented in this report are preliminary and upon binder stripper hand review may be revised to meet current compliance requirements. Jair Mitchell MD Jair Mitchell MD 05/17/2021 3:33:29 PM Electronically signed by Jair Mitchell MD Number of Addenda: 0 Note Initiated On: 05/17/2021 2:39 PM Estimated Blood Loss: Estimated blood loss was minimal.
[2021-05-17 15:44] VITALS: BP 101/53
[2021-05-17 20:00] VITALS: BP 97/53
[2021-05-17] MEDS: LEVEMIR (INSULIN DETEMIR) 1 UNITS/0.01ML SC SCH (21:31)
[2021-05-18] VITALS: BP 90/48
[2021-05-18] MEDS: PIPERACILLIN/TAZOBACTAM SOD 3.375 GM in D5W MINI-BAG PLUS 50 ML IV SCH (02:56)
[2021-05-18 03:58] LABS: HEMATOCRIT 27.6 % (36.0-47.0); HEMOGLOBIN 9.2 g/dl (12.0-15.5); MEAN CORPUSCULAR HEMOGLOBIN 30.1 pg (27.0-33.0); MEAN CORPUSCULAR HGB CONC 33.3 g/dl (32.0-36.5); MEAN CORPUSCULAR VOLUME 90.2 fl (80.0-96.0); PLATELET COUNT, AUTOMATED 119 10^3/uL (150-450); RED BLOOD COUNT 3.06 10^6/uL (4.00-5.40); WHITE BLOOD COUNT 4.9 10^3/uL (4.0-10.0)
[2021-05-18 04:08] VITALS: BP 92/50
[2021-05-18 04:20] LABS: BLOOD UREA NITROGEN 10 MG/DL (7-18); CALCIUM LEVEL 8.2 MG/DL (8.8-10.2); CARBON DIOXIDE LEVEL 32 MEQ/L (21-32); CHLORIDE LEVEL 108 MEQ/L (98-107); CREATININE FOR GFR 0.75 MG/DL (0.55-1.30); GLOMERULAR FILTRATION RATE > 60.0 (>32); GLUCOSE, FASTING 86 MG/DL (70-100); SODIUM LEVEL 144 MEQ/L (136-145)
[2021-05-18] MEDS ORDERED: POTASSIUM CHLORIDE 10MEQ SR TABLET PO ONE (05:30)
[2021-05-18 05:37] LABS: MAGNESIUM LEVEL 1.8 MG/DL (1.8-2.4)
[2021-05-18] MEDS: PANTOPRAZOLE 40MG VIAL (C9113 PER 1) IV SCH (05:58)
[2021-05-18] MEDS: LEVOTHYROXINE 125MCG TABLET (0.125MG) PO SCH (05:59)
[2021-05-18] MEDS: LR 1,000 ML IV SCH (06:07)
[2021-05-18] MEDS ORDERED: POLYVINYL ALCOHOL OPHTH SOLN 15 ML(LIQUITEARS) OU PRN (06:50)
[2021-05-18] MEDS: HumaLOG INSULIN (NovoLOG) PER UNIT SC SCH (07:30)
[2021-05-18] MEDS ORDERED: PANT40TA29 PO (07:44)
[2021-05-18 08:00] VITALS: BP 98/50
[2021-05-18] MEDS ORDERED: COLA100C5 PO (08:00)
[2021-05-18] MEDS ORDERED: FERR325T3 PO (08:00)
[2021-05-18 08:23] VITALS: BP 98/50
[2021-05-18] MEDS: SOTALOL HCL 80 MG TAB PO SCH (08:23)
[2021-05-18] MEDS: MAGNESIUM GLUCONATE 500 MG TAB PO SCH (08:23)
[2021-05-18] MEDS: DIGOXIN 0.125 MG TAB PO SCH (08:24)
--- NOTE | 2021-05-18 08:33 | CR.PDOC ---
General Date of Consultation: May 17, 2021 Referring Provider: KERRI OSHEA MD Attending Physician: CHARLEEN MAXWELL MD Consultation Referring physician / PCP : Dr. Oshea ,Dr. Burrows, Reason for consult: Anemia and drop in hemoglobin HPI: 86 year old female patient with IDDM, Paroxysmal A Fib, Sick sinus syndrome w pacemaker placement, DLP, Hepatic steatosis, diverticulosis, hypothyroidism, OA of the knees presented to ER for complaints of lightheadedness and one syncopal episodes. Patient reports having intermittent upper abdominal pain, predominantly on right side of abdomen, ocuring for few weeks and recently noted couple of dark stools. In ER patient was noted to have worsening anemia. OFF note: Patient did report taking ibuprofen for her joint pain in past. Pertinent negative GI symptoms: Patient denies nausea, vomiting, loss of appetite, early satiety or unintentional weight loss, hematemesis, or hematochezia. Review of Systems: GI: as stated above CVS: No chest pain, No palpitations, No leg swelling RS: No Shortness of breath, No Wheezing CART PUSHER: No loss of consciousness, No focal motor weakness., Hematology: No easy bruising, No gum bleeding, Musculoskeletal: No joint pain, ambulating well. : No blood in urine, No burning sensation of the urine ENT: No ear discharge/ pain, No dysphagia. Eyes: No photophobia. Skin: No rash Home medications: reviewed. No Plavix and No anticoagulants Medical h/o: As above. Surgical h/o: None on abdomen. Social h/o: Denies Alcohol, smoking, IVDA/ drugs. Family h/o of GI cancers - None Prior Endoscopies: None in [facility].. Prior GI evaluation: None in [facility] Exam: Vitals: reviewed General: Alert and oriented x 3, not in acute distress HEENT: No pallor, no icterus. Normal oropharynx, NO cervical lymphadenopathy. Chest: symmetric with bilateral air entry, CVS: S1, S2 heard, Abdomen: non-distended, soft, non-tender, no rigidity or guarding, no palpable masses, normal bowel sounds heard. Rectal exam: Patient refused. Extremities: pulses palpable, no pedal edema, CART PUSHER: no focal motor or sensory deficits. Moves all extremities Skin: no rash. Labs: reviewed. Imaging: none / reviewed. Impression: -- New onset symptomatic anemia with recent episodes of dark stools ( none in Hospital), with prior h/o NSAID use, DDx- PUD vs rule out AVMs Recommendations: -- Patient educated about the prior test results and all questions answered. -- Clear liquid diet and bowel prep for the scheduled procedure. -- NPO for 4 hours prior to procedure. -- Continue to hold Eliquis for 1 day if not contraindicated. -- Can continue with aspirin. -- Will schedule for EGD today. -- Patient educated about the procedure(s), indications, risks (including but not limited to bleeding, infection, perforation, anesthesia risks, including ), benefits and all alternatives including conservative measures without intervention. Patient verbalized understanding and consented for the procedure(s). -- Please follow operative note for post procedure recommendations. -- Plan of care educated to patient and patient verbalized understanding and agreed. All questions answered. -- Recommendations communicated to primary team. Patient to follow with PCP upon discharge for routine medical care. Vital Signs/I&O Vital Signs Date Time Temp Pulse Resp B/P (MAP) Pulse Ox O2 Delivery O2 Flow Rate FiO2 05/18/21 08:24 71 05/18/21 08:23 98/50 05/18/21 08:00 98.0 17 96 Room Air I&O- Last 24 Hours up to 6 AM 05/18/21 06:00 Intake Total 1480 ml Output Total 1900 ml Balance -420 ml Laboratory Data Labs 24H Laboratory Tests 2 05/17/21 12:29: Bedside Glucose (Misc Panel) 125H 05/17/21 18:03: Bedside Glucose (Misc Panel) 143H 05/17/21 21:17: Bedside Glucose (Misc Panel) 216H 05/18/21 03:46: Nucleated Red Blood Cells % (auto) 0.0, Anion Gap 4L, Glomerular Filtration Rate > 60.0, Calcium Level 8.2L, Magnesium Level 1.8 CBC/BMP Laboratory Tests 05/18/21 03:46 Microbiology Microbiology 05/16/21 Blood Culture - Preliminary, Resulted No Growth after 48 hours. All Specime... 05/16/21 Blood Culture - Preliminary, Resulted No Growth after 48 hours. All Specime... Allergies Coded Allergies: amiodarone (Unverified Allergy, Unknown, BLISTERS, 05/15/21) Home Medications Scheduled Aspirin (Aspirin EC) 81 Mg Tablet.dr, 81 MG PO DAILY, (Reported) Atorvastatin Calcium (Atorvastatin Calcium) 10 Mg Tab, 10 MG PO Q2D, (Reported) EVERY OTHER NIGHT Digoxin (Digoxin) 125 Mcg Tablet, 125 MCG PO DAILY, (Reported) Docusate Sodium (Colace) 100 Mg Capsule, 1 CAP PO BID for 30 Days, #60 Ferrous Sulfate (Ferrous Sulfate) 325 Mg Tablet.dr, 1 TAB PO DAILY for 30 Days, #30 Insulin Glargine,Hum.rec.anlog (Toujeo Solostar) 300 Unit/1 Ml Insuln.pen, 14 UNIT SC QHS, (Reported) Levothyroxine Sodium (Levothyroxine Sodium) 125 Mcg Tab, 125 MCG PO DAILY, (Reported) Magnesium Gluconate (Magnesium Gluconate) 500 Mg Tab, 500 MG PO DAILY, (Reported) Metformin HCl (Metformin HCl) 1,000 Mg Tab, 1,000 MG PO BIDWM, (Reported) Multivitamins (Thera M Plus Tablet) 1 Tab Tab, 1 TAB PO DAILY, (Reported) Pantoprazole Sodium (Pantoprazole Sodium) 40 Mg Tablet.dr, 40 MG PO BID for 30 Days, #60 Sotalol HCl (Sotalol) 80 Mg Tablet, 80 MG PO BID, (Reported) Scheduled PRN Fluticasone Propionate (Flonase Allergy Relief) 50 Mcg/Act Spr, 1 SPRAY NA BID PRN for NASAL CONGESTION, (Reported) CHARLEEN MAXWELL MD May 18, 2021 08:33
--- NOTE | 2021-05-18 14:08 | DS.PDOC ---
Discharge Summary General Date of Admission May 15, 2021 at 20:03 Date of Discharge 05/18/2021 Attending Physician: HIWOT HOLLEY MD Discharge Summary PROCEDURES PERFORMED DURING STAY: EGD by Dr. Mitchell on 05/17/2021 ADMITTING DIAGNOSES: Syncope DISCHARGE DIAGNOSES: Syncope likely 2/2 to combination of symptomatic anemia and orthostatic hypotension while on antihypertensive therapies SIRS criteria without evidence of sepsis Enteritis with abdominal pain Iron deficiency anemia UGIB with punctate gastric ulcerations/gastritis and recent use of NSAIDs IDDM History of Paroxysmal A Fib, Sick sinus syndrome w pacemaker placement DLP Hepatic steatosis History of diverticulosis Hypothyroidism OA of the knees COMPLICATIONS/CHIEF COMPLAINT: Enteritis, Sirs, Syncope. HISTORY OF PRESENT ILLNESS: 86 yr old w a hx of IDDM, Paroxysmal A Fib, Sick sinus syndrome w pacemaker placement, DLP, Hepatic steatosis, hypothyroidism, diverticulosis & OA of the knees who was brought to the ED via EMS after a syncopal episode at home and presented reporting 6 months of feeling more tired than usual and sleeping a lot. For several weeks she had intermittent right sided 6/10 in severity abdominal pain that improved after she had a BM. On the afternoon of presentation, while walking felt lightheaded and passed out. Because her caught her she didnt hurt herself. Of note she had two black BMs on the day of presentation and confirmed that she had been taking Ibuprofen daily for joint pain. HOSPITAL COURSE: On presentation she had soft BPs but was otherwise hemodynamically stable and afebrile and paced without EKG changes. She was admitted to medicine for evaluation of her syncopal episode to investigate UGIB given anemia on labs, history of melena while on NSAID therapy, orthostatic hypotension with soft BPs while on antihypertensive therapy, and potential cardiogenic etiology. On speaking more with her, she reported that she just had her PPM interrogated on Friday (the day before presentation) at her cardiology appt with Dr. Brown and it was deemed as functioning well. Telemetry remained uneventful with paced rhythm and normal rate, and digoxin level was within therapeutic range. I did consult Dr. Arthur but I believe he may not have seen the patient for evaluation. Nonetheless, she did well from a cardiac perspective without any concerning findings. She was also euvolemic and had negative troponin on initial evaluation. As for the orthostasis, Ms. Morton was essentially borderline hypotensive with soft pressures and I stopped her chlorthalidone and will not be resuming it after discharge. With regard to melena and anemia, she was found to be iron deficient, was started on PPI BID, NSAIDs were stopped and she had an EGD on 05/18/2021 that showed scattered moderate inflammation characterized by erosions, friability and granularity was found in the gastric antrum. Biopsies were taken with a cold forceps for Helicobacter pylori testing. She is now being discharged home on pantoprazole 40mg BID, ferrous sulfate 325mg daily, colace BID, and recommended to stop chlorthalidone and NSAIDs and is to follow up with her PCP within 7d, and call GI clinic within 2-4w for biopsy results. She is also to follow up [facility] cardiology within 7-10d. DISCHARGE MEDICATIONS: Please see below. ALLERGIES: Please see below. PHYSICAL EXAMINATION ON DISCHARGE: VITAL SIGNS: Please see below. Vitals: see below GENERAL APPEARANCE: well-nourished and developed/ NAD HEENT: EOMI / MMM&P CARDIOVASCULAR: RRR/NMRG LUNGS: CTAB on RA ABDOMEN: contour flat, NTND, normoactive bowel sounds MUSCULOSKELETAL: NCAT / ROWENA x 4 extremities NEUROLOGICAL: CN 2-12 grossly intact / speech not dysarthric PSYCHIATRIC: A&O x 3 / able to understand and follow all commands TELE: Paced with normal rate LABORATORY DATA: Please see below. IMAGING: CT A/P: Lungs: No suspicious mass or airspace process in the visualized lung bases. Liver: Heterogeneous patchy enhancement of the liver with appearance suggesting hepatic steatosis and areas of geographic sparing. Relatively similar appearance compared to the prior CT from November 2016. Gallbladder and bile ducts: Gallstones are present in the gallbladder lumen. No adjacent fluid or duct dilatation. Pancreas: Pancreas appears normal. No focal mass or peripancreatic inflammation. Spleen: Spleen appears homogeneous without focal mass. Adrenal glands: Right adrenal gland is normal. Left adrenal demonstrates a 2.8 x 1.9 cm mass that is unchanged since 2017. Kidneys and ureters: Kidneys are normal except for benign simple fluid density cysts which require no follow-up. Stomach and bowel: No evidence of small bowel obstruction. Multiple fluid-filled loops of nondilated bowel with enhancing mucosa are present. Diverticular changes are present within the colon without inflammation. Appendix: Appendix is not seen. No RLQ inflammation to suggest appendicitis. Intraperitoneal space: No pneumoperitoneum. Vasculature: No aortic aneurysm. Main portal and splenic veins enhance normally. Lymph nodes: No enlarged lymph nodes. Urinary bladder: Urinary bladder appears normal. Reproductive: Uterus is surgically absent. Bones/joints: Bony structures are normal except for lumbar spine degenerative disc changes. Soft tissues: Unremarkable. IMPRESSION: 1. Pattern of small bowel and colon suggests the possibility of mild inflammatory or infectious enteritis without obstruction. 2. Colonic diverticulosis without active inflammation 3. Prominent rectosigmoid colonic stool without evidence of an obstructive lesion. Correlation with rectal exam is recommended if clinically warranted CXR: The mediastinum and cardiac silhouette are stable and within normal limits for portable technique. Pacemaker in stable position. The lung weathers demonstrate chronic changes without consolidation, effusion, or pneumothorax. Skeletal structures are intact. IMPRESSION: No acute cardiopulmonary process appreciated. EGD 05/17/2021: Findings: The examined esophagus was normal. Scattered moderate inflammation characterized by erosions, friability and granularity was found in the gastric antrum. Biopsies were taken with a cold forceps for Helicobacter pylori testing. Verification of patient identification for the specimen was done by the physician and nurse using the patient's name, date and medical record number. Estimated blood loss was minimal. Patchy moderate inflammation characterized by erosions and shallow ulcerations was found in the duodenal bulb and in the second portion of the duodenum. Impression: - Normal esophagus. - Gastritis. Biopsied. - Duodenitis. Recommendation: - Patient has a contact number available for emergencies. The signs and symptoms of potential delayed complications were discussed with the patient. Return to normal activities tomorrow. Written discharge instructions were provided to the patient. - High fiber diet. - Continue present medications. - Use Protonix (pantoprazole) 40 mg PO twice daily - to be taken in morning (1/2 hour before breakfast) and at bedtime ( atleast 3 hours after last meal) for 6 weeks. - Await pathology results. - If Biopsy shows H. pylori will need therapy with antibiotic course.. - Telephone GI clinic for pathology results 1 - 2 weeks. Please call GI clinic @ [phone] - Return to primary care physician. - Return to GI clinic if persistent symptoms or new symptoms. PROGNOSIS: Good ACTIVITY: As tolerated DIET: High fiber, consistent carb DISCHARGE PLAN: Home with close PCP follow up within 7, cardiology within 7-10d, call GI office within 2-4w for biopsy results. For now stop NSAIDs and chlorthalidone. Start pantoprazole 40mg BID, ferrous sulfate 325mg daily, colace BID. DISPOSITION: Home DISCHARGE INSTRUCTIONS: Home with close PCP follow up within 7, cardiology within 7-10d, call GI office within 2-4w for biopsy results. For now stop NSAIDs and chlorthalidone. Start pantoprazole 40mg BID, ferrous sulfate 325mg daily, colace BID. ITEMS TO FOLLOWUP ON ON OUTPATIENT: Iron deficiency anemia UGIB GI gastric biopsy results for Hpylori testing Cardiology follow up DISCHARGE CONDITION: Stable TIME SPENT ON DISCHARGE: 40 minutes. Vital Signs/I&Os Vital Signs Date Time Temp Pulse Resp B/P (MAP) Pulse Ox O2 Delivery O2 Flow Rate FiO2 05/18/21 04:08 98.5 74 16 92/50 (64) 95 Room Air I&O- Last 24 Hours up to 6 AM 05/18/21 06:00 Intake Total 1480 ml Output Total 1900 ml Balance -420 ml Laboratory Data Labs 24H Laboratory Tests 2 05/17/21 12:29: Bedside Glucose (Misc Panel) 125H 05/17/21 18:03: Bedside Glucose (Misc Panel) 143H 05/17/21 21:17: Bedside Glucose (Misc Panel) 216H 05/18/21 03:46: Nucleated Red Blood Cells % (auto) 0.0, Anion Gap 4L, Glomerular Filtration Rate > 60.0, Calcium Level 8.2L, Magnesium Level 1.8 CBC/BMP Laboratory Tests 05/18/21 03:46 FSBS Laboratory Tests Test 05/17/21 12:29 05/17/21 18:03 05/17/21 21:17 Range/Units Bedside Glucose (Misc Panel) 125 143 216 83-110 MG/DL Microbiology Microbiology 05/16/21 Blood Culture - Preliminary, Resulted No Growth after 48 hours. All Specime... 05/16/21 Blood Culture - Preliminary, Resulted No Growth after 48 hours. All Specime... Discharge Medications Scheduled Aspirin (Aspirin EC) 81 Mg Tablet.dr, 81 MG PO DAILY, (Reported) Atorvastatin Calcium (Atorvastatin Calcium) 10 Mg Tab, 10 MG PO Q2D, (Reported) EVERY OTHER NIGHT Digoxin (Digoxin) 125 Mcg Tablet, 125 MCG PO DAILY, (Reported) Docusate Sodium (Colace) 100 Mg Capsule, 1 CAP PO BID Ferrous Sulfate (Ferrous Sulfate) 325 Mg Tablet.dr, 1 TAB PO DAILY Insulin Glargine,Hum.rec.anlog (Chitra Dedephilipp) 300 Unit/1 Ml Insuln.pen, 14 UNIT SC QHS, (Reported) Levothyroxine Sodium (Levothyroxine Sodium) 125 Mcg Tab, 125 MCG PO DAILY, (Reported) Magnesium Gluconate (Magnesium Gluconate) 500 Mg Tab, 500 MG PO DAILY, (Reported) Metformin HCl (Metformin HCl) 1,000 Mg Tab, 1,000 MG PO BIDWM, (Reported) Multivitamins (Thera M Plus Tablet) 1 Tab Tab, 1 TAB PO DAILY, (Reported) Pantoprazole Sodium (Pantoprazole Sodium) 40 Mg Tablet.dr, 40 MG PO BID Sotalol HCl (Sotalol) 80 Mg Tablet, 80 MG PO BID, (Reported) Scheduled PRN Fluticasone Propionate (Flonase Allergy Relief) 50 Mcg/Act Spr, 1 SPRAY NA BID PRN for NASAL CONGESTION, (Reported) Allergies Coded Allergies: amiodarone (Unverified Allergy, Unknown, BLISTERS, 05/15/21) HIWOT HOLLEY MD May 18, 2021 08:09
[2021-05-18] MEDS ORDERED: PANTOPRAZOLE 40MG TAB (PROTONIX) PO SCH (21:00)
== END 2021-05-18 12:14 | disposition home or self-care (01) | DRG 392 ==
LOC: EDBD 14:03 → M ED 14:03 → M ED INP 20:03 → M PCU 23:33
PROVIDERS: ADMIT Internal Medicine; ATTEND Internal Medicine
PROC: 0DB78ZX Excision of Stomach, Pylorus, Via Natural or Artificial Opening Endoscopic, Diagnostic (ICD-10-PCS; principal; 2021-05-17 10:34)
DX: K29.70 Gastritis, unspecified, without bleeding (principal); D62 Acute posthemorrhagic anemia; K92.1 Melena; E83.42 Hypomagnesemia; E11.9 Type 2 diabetes mellitus without complications; I48.0 Paroxysmal atrial fibrillation; Z95.0 Presence of cardiac pacemaker; E03.9 Hypothyroidism, unspecified; Z79.82 Long term (current) use of aspirin; Z79.4 Long term (current) use of insulin; Z79.899 Other long term (current) drug therapy; Z20.822 Contact with and (suspected) exposure to COVID-19; Z88.8 Allergy status to other drugs, medicaments and biological substances; I95.1 Orthostatic hypotension; D50.9 Iron deficiency anemia, unspecified; K76.0 Fatty (change of) liver, not elsewhere classified; M17.0 Bilateral primary osteoarthritis of knee; Z87.891 Personal history of nicotine dependence; Z66 Do not resuscitate

== ENCOUNTER → 2022-05-21 | Outpatient (REF) | payer MEDICARE, OTHER ==
[~2022-05-21] MED LIST changes: +ASPI-161 PO; +ASPI81CH33 PO; +COLA100C5 PO; +DIGO0.123 PO; +FERR325T3 PO; +LOSA25TA13 PO; -LOSA25TA14 PO; +PANT40TA29 PO; +SOTA80TA53 PO; +TOUJ1.2I SC
== END ==
LOC: M SFHCDERM 15:09
PROVIDERS: ATTEND Dermatology
DX: Z48.02 Encounter for removal of sutures (principal)

== ENCOUNTER → 2022-06-25 | Outpatient (REF) | payer MEDICARE, OTHER | LOC: M SFHCDERM 16:34 | PROVIDERS: ATTEND Dermatology | DX: C44.301 Unspecified malignant neoplasm of skin of nose (principal) ==

== ENCOUNTER → 2023-01-29 | Outpatient (CLI) | payer MEDICARE, OTHER | LOC: M RAD 11:16 | PROVIDERS: ATTEND Physician Assistant Surgical | DX: M17.12 Unilateral primary osteoarthritis, left knee (principal); M25.562 Pain in left knee ==

== ENCOUNTER → 2024-03-04 | Outpatient (REF) | payer MEDICARE, OTHER ==
[~2024-03-04] MED LIST changes: -ASPI-161 PO; +ASPI-615 PO
== END ==
LOC: M SFHCDERM 07:17
PROVIDERS: ATTEND Dermatology
DX: L57.0 Actinic keratosis (principal)

== ENCOUNTER 2024-11-04 12:08 | Inpatient (IN) | payer MEDICARE, OTHER ==
[~2024-11-04] VITALS: Ht 165.1 cm; Wt 68.2 kg
[2024-11-04 13:21] LABS: BASO # 0.1 10^3/uL (0.0-0.2); BASO % 1.1 % (0.0-1.0); EOS # 0.3 10^3/uL (0.0-0.5); EOS % 2.9 % (0.0-3.0); HEMOGLOBIN 14.6 g/dl (12.0-15.5); LYMPH # 2.1 10^3/uL (1.5-5.0); LYMPH % 19.6 % (24.0-44.0); MEAN CORPUSCULAR HEMOGLOBIN 30.1 pg (27.0-33.0); MEAN CORPUSCULAR VOLUME 88.7 fl (80.0-96.0); MONO # 0.8 10^3/uL (0.0-0.8); MONO % 7.8 % (2.0-8.0); NEUTROPHILS # 7.2 10^3/uL (1.5-8.5); NEUTROPHILS % 68.2 % (36.0-66.0); PLATELET COUNT, AUTOMATED 225 10^3/uL (150-450); RED BLOOD COUNT 4.85 10^6/uL (4.00-5.40); WHITE BLOOD COUNT 10.5 10^3/uL (4.0-10.0)
[2024-11-04] MEDS ORDERED: ISOVUE-370 76% 100ML VIAL As Ordered ONE (13:58)
[2024-11-04] MEDS: fentaNYL 100 MCG/2 ML INJECTION IV PRN (14:08)
[2024-11-04] MEDS ORDERED: CHLO125TA PO (14:37)
[2024-11-04] MEDS ORDERED: PANT20TA6 PO (14:37)
[2024-11-04 14:39] LABS: ALBUMIN 3.3 G/DL (3.2-5.2); ALKALINE PHOSPHATASE 86 U/L (35-104); ALT/SGPT 27 U/L (7.0-40); AST/SGOT 35 U/L (<34); BILIRUBIN,DIRECT 0.3 MG/DL (<0.4); BILIRUBIN,TOTAL 0.8 MG/DL (0.3-1.2); BLOOD UREA NITROGEN 34 MG/DL (9-23); CALCIUM LEVEL 9.2 MG/DL (8.3-10.6); CARBON DIOXIDE LEVEL 29 MMOL/L (20-31); CHLORIDE LEVEL 99 MMOL/L (98-107); CK-MB VALUE MASS < 1.0 NG/ML (<3.6); CREATININE FOR GFR 0.82 MG/DL (0.55-1.30); GLOMERULAR FILTRATION RATE > 60.0 (>32); GLUCOSE, FASTING 189 MG/DL (74-106); MAGNESIUM LEVEL 1.8 MG/DL (1.8-2.4); POTASSIUM SERUM 3.9 MMOL/L (3.5-5.1); SODIUM LEVEL 139 MMOL/L (136-145); TOTAL PROTEIN 6.4 G/DL (5.7-8.2)
[2024-11-04 14:40] LABS: FREE T4 1.46 NG/DL (0.89-1.76)
[2024-11-04 14:54] LABS: CPK CREATINE PHOSPHOKINASE 81 U/L (34-145); MB/CK RELATIVE INDEX 1.23 (< OR =4)
[2024-11-04 15:06] LABS: AMORPHOUS SEDIMENT SMALL (NEGATIVE); APPEARANCE, URINE HAZY (CLEAR); BACTERIA, URINE AUTO 3+ (NEGATIVE); BILIRUBIN, URINE AUTO NEGATIVE (NEGATIVE); BLOOD, URINE BLOOD NEGATIVE (NEGATIVE); COLOR, URINE AMBER (YELLOW); GLUCOSE, URINE (UA) AUTO NEGATIVE (NEGATIVE); KETONE, URINE AUTO NEGATIVE (NEGATIVE); LEUKOCYTE ESTERASE, URINE AUTO 2+ (NEGATIVE); MUCUS, URINE SMALL (NEGATIVE); NITRITE, URINE AUTO NEGATIVE (NEGATIVE); PROTEIN, URINE AUTO NEGATIVE (NEGATIVE); RBC, URINE AUTO 3 /HPF (0-3); SPECIFIC GRAVITY URINE AUTO 1.019 (1.002-1.035); SQUAMOUS EPITHELIAL CELL UR AU 1 /HPF (0-6); WBC, URINE AUTO 10 /HPF (0-3)
[2024-11-04 16:39] LABS: INR 1.06; PROTHROMBIN TIME 14.1 SECONDS (12.5-14.5)
[2024-11-04 16:41] LABS: CK-MB VALUE MASS < 1.0 NG/ML (<3.6)
[2024-11-04 16:42] LABS: CPK CREATINE PHOSPHOKINASE 66 U/L (34-145); MB/CK RELATIVE INDEX 1.51 (< OR =4)
[2024-11-04] MEDS: cefTRIAXone SOD 1 GM in DEXTROSE 5% (D5W) ADV/MINI-BAG 50 ML IV ONE (16:45)
[2024-11-04] MEDS ORDERED: THERTAB52 PO (20:15)
[2024-11-04] MEDS ORDERED: METF-838 PO (20:15)
[2024-11-04] MEDS ORDERED: HOME MED LIST COMPLETE! XX SCH (20:25)
[2024-11-04] MEDS: DOCUSATE SODIUM 100MG CAPSULE PO SCH (21:00)
[2024-11-04] MEDS: MIRALAX *UNIT DOSE* 17GM PACKET PO SCH (21:00)
[2024-11-04] MEDS: SOTALOL HCL 80 MG TAB PO SCH (21:00)
[2024-11-04] MEDS: NS (Normal Saline) 0.9% 1,000 ML IV SCH (22:02)
[2024-11-04] MEDS ORDERED: DEXTROSE 50% 50ML SYRINGE IV PRN (22:55)
[2024-11-04] MEDS ORDERED: GLUCOSE 4 GM CHEW PO PRN (22:55)
[2024-11-04] MEDS ORDERED: GLUCAGON INJ 1MG VIAL SC PRN (22:55)
[2024-11-05] VITALS (7 sets, daily range): BP systolic 90–105; BP diastolic 50–64; TEMP 97.2–97.5; O2SAT 58–94
[2024-11-05] MEDS: MORPHINE 2 MG/ML 1ML VIAL IV ONE (01:58)
[2024-11-05 04:34] LABS: HEMATOCRIT 40.3 % (36.0-47.0); HEMOGLOBIN 13.4 g/dl (12.0-15.5); MEAN CORPUSCULAR HGB CONC 33.3 g/dl (32.0-36.5); MEAN CORPUSCULAR VOLUME 90.4 fl (80.0-96.0); PLATELET COUNT, AUTOMATED 194 10^3/uL (150-450); RED BLOOD COUNT 4.46 10^6/uL (4.00-5.40)
[2024-11-05 05:00] LABS: CALCIUM LEVEL 8.9 MG/DL (8.3-10.6); CREATININE FOR GFR 0.93 MG/DL (0.55-1.30); GLOMERULAR FILTRATION RATE 59.5 (>32); MAGNESIUM LEVEL 1.7 MG/DL (1.8-2.4); POTASSIUM SERUM 3.8 MMOL/L (3.5-5.1)
[2024-11-05] MEDS: KETOROLAC 30 MG/ML 1ML VIAL IV PRN (05:00)
[2024-11-05] MEDS: LEVOTHYROXINE 125MCG TABLET (0.125MG) PO SCH (05:01)
[2024-11-05 06:33] LABS: C REACTIVE PROTEIN QUANTITATIV 0.67 MG/DL (<1.0)
[2024-11-05 06:45] LABS: PROCALCITONIN 0.06 ng/ml
[2024-11-05] MEDS: INSULIN LISPRO (NovoLOG) PER UNIT SC SCH ×2 (07:30→21:00)
[2024-11-05] MEDS ORDERED: CHLORTHALIDONE 25 MG TAB PO SCH (09:00)
[2024-11-05] MEDS: MAG SULF 1GM/100ML (MAG RUN) 1 GM in IV 1 EA IV SCH (10:05)
[2024-11-05] MEDS: PANTOPRAZOLE 40MG VIAL IV SCH (10:06)
[2024-11-05] MEDS: ATORVASTATIN 10 MG TAB PO SCH (10:06)
[2024-11-05] MEDS: ASPIRIN 81MG ENTERIC TABLET PO SCH (10:06)
[2024-11-05] MEDS: ENOXAPARIN 40MG/0.4ML SYRINGE (J1650 PER 10MG) SC SCH (10:09)
[2024-11-05] MEDS: MIDODRINE 5 MG TAB PO SCH (13:07)
[2024-11-05] MEDS: cefTRIAXone SOD 2 GM in DEXTROSE 5% (D5W) ADV/MINI-BAG 50 ML IV SCH (16:28)
[2024-11-05] MEDS: SENOKOT S TAB PO SCH (20:32)
[2024-11-05] MEDS: ACETAMINOPHEN 325 MG TAB PO PRN (20:32)
[2024-11-05] MEDS: FLEET OIL RETENTION ENEMA PR PRN (22:20)
[2024-11-05] MEDS: BISACODYL 10MG SUPP PR SCH (22:38)
[2024-11-05] MEDS: LanTUS (INSULIN GLARGINE INJ) 1 UNITS/0.01 ML SC SCH (22:38)
[2024-11-06 04:12] VITALS: BP 130/84; TEMP 97.2; O2SAT 95
[2024-11-06] MEDS: SOTALOL HCL 80 MG TAB PO ONE (04:51)
[2024-11-06 06:20] VITALS: BP 90/53; O2SAT 94
[2024-11-06 06:48] LABS: HEMATOCRIT 35.2 % (36.0-47.0); HEMOGLOBIN 11.7 g/dl (12.0-15.5); MEAN CORPUSCULAR HEMOGLOBIN 29.7 pg (27.0-33.0); MEAN CORPUSCULAR HGB CONC 33.2 g/dl (32.0-36.5); MEAN CORPUSCULAR VOLUME 89.3 fl (80.0-96.0); PLATELET COUNT, AUTOMATED 134 10^3/uL (150-450); RED BLOOD COUNT 3.94 10^6/uL (4.00-5.40); WHITE BLOOD COUNT 9.7 10^3/uL (4.0-10.0)
[2024-11-06 07:10] LABS: CALCIUM LEVEL 8.4 MG/DL (8.3-10.6); CREATININE FOR GFR 1.19 MG/DL (0.55-1.30); GLOMERULAR FILTRATION RATE 44.3 (>32); MAGNESIUM LEVEL 2.3 MG/DL (1.8-2.4); POTASSIUM SERUM 3.7 MMOL/L (3.5-5.1)
[2024-11-06 07:54] LABS: ATYPICAL LYMPH 8 % (0-5); BASOPHILS 2 % (0-1); EOSINOPHILS 4 % (0-3); LYMPHOCYTES 10 % (16-44); MONOCYTES 7 % (0-5); NEUTROPHILS 69 % (28-66)
[2024-11-06 07:55] LABS: PLATELET ESTIMATE DECREASED (NORMAL)
[2024-11-06] MEDS: PANTOPRAZOLE 20 MG TAB PO SCH (08:14)
[2024-11-06] MEDS ORDERED: PERCOCET 5MG/325MG TAB PO PRN (12:25)
[2024-11-06] MEDS: NS (Normal Saline) 0.9% 1,000 ML IV SCH (13:11)
[2024-11-06 13:28] LABS: SOURCE PERIPHERAL SMEAR
[2024-11-06 14:00] VITALS: BP 85/48; TEMP 97.3; O2SAT 93
[2024-11-06] MEDS: PERCOCET 5MG/325MG TAB PO PRN (15:12)
[2024-11-06 20:02] VITALS: BP 100/63; TEMP 97.5; O2SAT 95
[2024-11-06] MEDS ORDERED: OLANZapine INTRAMUSCULAR 10MG VIAL IM PRN (22:20)
[2024-11-06] MEDS: POLYVINYL ALCOHOL OPHTH SOLN 15ML (LIQUITEARS) OU SA PRN (22:31)
[2024-11-07 04:23] VITALS: BP 113/73; TEMP 97.2; O2SAT 94
[2024-11-07 06:44] LABS: BASO # 0.1 10^3/uL (0.0-0.2); BASO % 0.5 % (0.0-1.0); EOS # 0.2 10^3/uL (0.0-0.5); EOS % 1.8 % (0.0-3.0); HEMATOCRIT 35.6 % (36.0-47.0); HEMOGLOBIN 11.8 g/dl (12.0-15.5); LYMPH # 1.3 10^3/uL (1.5-5.0); LYMPH % 11.1 % (24.0-44.0); MEAN CORPUSCULAR HEMOGLOBIN 29.9 pg (27.0-33.0); MEAN CORPUSCULAR HGB CONC 33.1 g/dl (32.0-36.5); MEAN CORPUSCULAR VOLUME 90.1 fl (80.0-96.0); MONO # 1.2 10^3/uL (0.0-0.8); MONO % 10.3 % (2.0-8.0); NEUTROPHILS # 8.9 10^3/uL (1.5-8.5); NEUTROPHILS % 75.9 % (36.0-66.0); PLATELET COUNT, AUTOMATED 150 10^3/uL (150-450); RED BLOOD COUNT 3.95 10^6/uL (4.00-5.40); WHITE BLOOD COUNT 11.7 10^3/uL (4.0-10.0)
[2024-11-07 06:51] VITALS: BP 123/75
[2024-11-07 07:12] LABS: CALCIUM LEVEL 8.2 MG/DL (8.3-10.6); CREATININE FOR GFR 0.95 MG/DL (0.55-1.30)
[2024-11-07] MEDS: MIDODRINE 5 MG TAB PO SCH (08:06)
[2024-11-07] MEDS ORDERED: FLEET ENEMA PR PRN (11:25)
[2024-11-07] MEDS ORDERED: ACETAMINOPHEN 650MG SUPP PR PRN (11:25)
[2024-11-07] MEDS ORDERED: HYOSCYAMINE SULFATE 0.125 MG SUBL TABLET PO PRN (11:25)
[2024-11-07] MEDS: CEFDINIR 300 MG CAP (OMNICEF) PO SCH (12:21)
[2024-11-07] MEDS: MORPHINE 10MG/0.5ML ORAL CONCENTRATE SOLUTION U/D SL PRN (12:21)
[2024-11-07] MEDS: LORazepam 1 MG TAB PO PRN (14:31)
[2024-11-07] MEDS ORDERED: RIVAROXABAN 10MG TAB (XARELTO) PO SCH (18:00)
[2024-11-07] MEDS: QUEtiapine FUMARATE 25 MG TAB PO SCH (21:00)
[2024-11-07] MEDS: LORazepam 2 MG/ML 1ML VIAL IV PRN (23:32)
[2024-11-08] MEDS: MORPHINE 10MG/0.5ML ORAL CONCENTRATE SOLUTION U/D SL PRN ×2 (10:58→15:08)
[2024-11-08] MEDS: MORPHINE 2 MG/ML 1ML VIAL IV PRN (14:55)
[2024-11-09 07:13] VITALS: BP 113/73; TEMP 97.2; O2SAT 94
[2024-11-09] MEDS: fentaNYL 50 MCG/HR PATCH TOP SCH (17:21)
[2024-11-10] MEDS: MORPHINE 10MG/0.5ML ORAL CONCENTRATE SOLUTION U/D SL PRN (16:27)
[2024-11-11] MEDS ORDERED: HYDROcodone/APAP LIQUID 7.5-325MG 15ML UDC (LORTAB ELIXIR) PO PRN (12:25)
[2024-11-11] MEDS: MORPHINE 10MG/0.5ML ORAL CONCENTRATE SOLUTION U/D SL PRN (13:15)
[2024-11-11] MEDS: MORPHINE 10MG/0.5ML ORAL CONCENTRATE SOLUTION U/D SL SCH (16:45)
[2024-11-11] MEDS: SCOPOLAMINE 1MG TRANSDERMAL PATCH TOP PRN (21:56)
[2024-11-11] MEDS: ATROPINE SULFATE 1% OPHTH SOLN 2ML BTL SL PRN (23:10)
[2024-11-12] MEDS: FENTANYL REMOVAL DOCUMENTATION MISC XX SCH (16:53)
== END 2024-11-12 23:55 | disposition expired | DRG 312 ==
LOC: M ED 12:08 → EDBD 12:08 → M ED INP 21:01 → M MSPAV 22:17 → OBSVTOIN 11-06 12:23
PROVIDERS: ADMIT Student in an Organized Health Care Education/Training Program; ATTEND Internal Medicine
PROC: B246ZZZ Ultrasonography of Right and Left Heart (ICD-10-PCS; principal; 2024-11-05)
DX: R55 Syncope and collapse (principal); G93.41 Metabolic encephalopathy; N39.0 Urinary tract infection, site not specified; N17.9 Acute kidney failure, unspecified; S49.001A Unspecified physeal fracture of upper end of humerus, right arm, initial encounter for closed fracture; E11.9 Type 2 diabetes mellitus without complications; I48.0 Paroxysmal atrial fibrillation; I49.5 Sick sinus syndrome; E78.5 Hyperlipidemia, unspecified; R57.1 Hypovolemic shock; E03.9 Hypothyroidism, unspecified; M17.0 Bilateral primary osteoarthritis of knee; K74.60 Unspecified cirrhosis of liver; R57.0 Cardiogenic shock; K56.41 Fecal impaction; I10 Essential (primary) hypertension; I25.10 Atherosclerotic heart disease of native coronary artery without angina pectoris; K21.9 Gastro-esophageal reflux disease without esophagitis; Z51.5 Encounter for palliative care; Z66 Do not resuscitate; I95.9 Hypotension, unspecified; E83.42 Hypomagnesemia; R33.9 Retention of urine, unspecified; Z79.4 Long term (current) use of insulin; Z79.890 Hormone replacement therapy; Z95.0 Presence of cardiac pacemaker; Z79.899 Other long term (current) drug therapy; Z79.82 Long term (current) use of aspirin; Z88.8 Allergy status to other drugs, medicaments and biological substances; Z98.41 Cataract extraction status, right eye; Z98.42 Cataract extraction status, left eye; Z85.858 Personal history of malignant neoplasm of other endocrine glands; Z90.49 Acquired absence of other specified parts of digestive tract; W19.XXXA Unspecified fall, initial encounter; Y93.9 Activity, unspecified; Y99.8 Other external cause status; Y92.012 Bathroom of single-family (private) house as the place of occurrence of the external cause